=== PATIENT | female | born 1975 | race Hispanic/Latino ===

== ENCOUNTER 2017-08-21 18:32 | Inpatient (IN) | payer SELFPAY ==
[~2017-08-21] VITALS: Ht 149.9 cm; Wt 117.9 kg
[~2017-08-21 18:32] MED LIST: DEXAMETHASONE SOD PHOS INJ 4 MG/ML VIAL ONE; GLYCOPYRROLATE INJ 1MG/ 5 ML SYR ONE; LIDOCAINE HCL 2% LOCAL INJ 5 ML SDV VIAL INJ ONE; NEOSTIGMINE 5 MG/5ML SYR ONE; ONDANSETRON HCL INJ 2 MG/ML VIAL ONE; PROPOFOL IV EMULSION 10 MG/ML 20 ML VIAL ONE; ROCURONIUM BROMIDE 10 MG/ML 5ML VIAL ONE; SEVOFLURANE INHAL SOLN 250 ML PEN BTL ONE
[2017-08-21] MEDS ORDERED: KETOROLAC TROMETHAMINE 30 MG/ML VIAL IV STA (18:50)
[2017-08-21] MEDS ORDERED: PROMETHAZINE 25MG/ NS 50ML (IV) IV ONE (19:00)
[2017-08-21] MEDS ORDERED: SODIUM CHLORIDE 0.9% 1000ML 1,000 ML IV ONE (19:00)
[2017-08-21] MEDS ORDERED: NEXIUM20 MG PO (19:14)
[2017-08-21] MEDS ORDERED: SODIUM CHLORIDE 0.9% 500ML 500 ML ONE (20:45)
[2017-08-21] MEDS ORDERED: PIPERACILLIN/TAZOBAC 3.375 GM VIAL IV ONE (20:45)
[2017-08-21] MEDS ORDERED: DIAZEPAM INJ 5 MG/ML 2 ML IV PRN (21:15)
[2017-08-21] MEDS ORDERED: HYDROMORPHONE 1MG/1ML INJ IV PRN (23:00)
[2017-08-21] MEDS: SODIUM CHLORIDE 0.9% 1000ML 1,000 ML IV SCH (23:34)
[2017-08-21 23:57] VITALS: BP 138/71
[2017-08-22] VITALS (8 sets, daily range): BP systolic 94–138; BP diastolic 57–72
[2017-08-22] MEDS ORDERED: PIPER-TAZ 3.375 GM 100 ML IV SCH (03:00)
[2017-08-22] MEDS: PIPER-TAZ 3.375 GM 100 ML IV SCH ×4 (03:11→20:37)
[2017-08-22] MEDS: SODIUM CHLORIDE 0.9% 1000ML 1,000 ML IV SCH ×3 (05:10→20:37)
[2017-08-22 07:24] LABS: BASOPHILS # (AUTO) 0.1 (0.0-0.1); BASOPHILS % 0.6 % (0.0-1.0); EOSINOPHILS # (AUTO) 0.8 (0.0-0.4); EOSINOPHILS % 6.5 % (0.0-6.0); HEMATOCRIT 31.1 % (34.2-44.1); HEMOGLOBIN 9.4 g/dL (12.0-16.0); LYMPHOCYTES # (AUTO) 2.6 (1.0-3.2); LYMPHOCYTES % 20.3 % (18.0-39.1); MEAN CORPUSCULAR HEMOGLOBIN 23.8 pg (28-32); MEAN CORPUSCULAR HGB CONC 30.2 g/dL (31-35); MEAN CORPUSCULAR VOLUME 78.7 fL (81-99); MONOCYTES # (AUTO) 0.7 (0.2-0.8); MONOCYTES % 5.2 % (4.4-11.3); NEUTROPHILS # (AUTO) 8.6 (2.1-6.9); NEUTROPHILS % 66.9 % (38.7-80.0); PLATELET COUNT 349 x10e3/uL (140-360); RED BLOOD COUNT 3.95 x10e6/uL (3.6-5.1)
[2017-08-22] MEDS: HYDROMORPHONE 2MG/ML INJ IV PRN ×2 (08:53→17:49)
[2017-08-22] MEDS ORDERED: ONDANSETRON HCL INJ 2 MG/ML VIAL IV PRN (09:45)
--- NOTE | 2017-08-22 10:12 | History and Physical ---
CHIEF COMPLAINT: Abdominal pain. HISTORY OF PRESENT ILLNESS: The patient is a 41-year-old female with a 2-day history of pain in the right lower quadrant with nausea and vomiting. She had no fever, chills or diarrhea. The patient said the pain has not improved since admission. PAST MEDICAL HISTORY: Significant for hyperlipidemia. SURGICAL HISTORY: Positive for tubal ligation and . ALLERGIES: SHE IS ALLERGIC TO MORPHINE. SOCIAL HABITS: She has no drug use, smoking or alcohol abuse. REVIEW OF SYSTEMS: No chest pain, shortness of breath or cough. PHYSICAL EXAMINATION VITAL SIGNS: Stable. She is afebrile. GENERAL: The patient is awake, alert and in moderate discomfort. HEENT: Sclerae anicteric. NECK: Supple. LUNGS: Clear. HEART: Regular rate and rhythm. ABDOMEN: Soft with guarding, tenderness and rebound in the right lower quadrant. White cell count 13. CT scan showed acute appendicitis. ASSESSMENT: Acute appendicitis. PLAN: Laparoscopic appendectomy. Attendant risks discussed. Job#: [id number] [place]
[2017-08-22] MEDS ORDERED: ONDANSETRON HCL 4 MG ORAL DISINTEGRATING TAB ONE (10:18)
[2017-08-22] MEDS ORDERED: BUPIVACAINE 0.25%/EPI 30ML SDV INJ ONE (10:29)
[2017-08-22] MEDS ORDERED: LIDOCAINE HCL 1% LOCAL INJ 20 ML VIAL ONE (10:30)
[2017-08-22] MEDS: ONDANSETRON HCL 4 MG ORAL DISINTEGRATING TAB SL PRN (10:40)
--- NOTE | 2017-08-22 14:32 | Operative Report ---
DATE OF PROCEDURE: August 22, 2017 PREOPERATIVE DIAGNOSIS: Appendicitis. POSTOPERATIVE DIAGNOSIS: Appendicitis. OPERATIVE PROCEDURE: Laparoscopic appendectomy. RESAW OPERATOR: None. ANESTHESIA: General endotracheal, . INDICATIONS: The patient is a 41-year-old female with a 2-day history of pain in the right lower quadrant. CT scan showing appendicitis. Patient had consented for laparoscopic appendectomy with all attendant risks discussed. PROCEDURE FINDINGS: Acute appendicitis. DESCRIPTION OF PROCEDURE: Patient was brought to the OR intubated. Abdomen with prepped with alcohol and draped in a sterile fashion. An infraumbilical incision is made and a 12-mm port inserted and insufflation then began. Under direct vision, other port site placed in the right lower quadrant and right upper quadrant. Appendix noted to be retrocecal. It is mobilized by first dividing the white line of Toldt along the cecum and retracted the cecum medially. The appendix is then mobilized on the retrocecal position using the LigaSure to control the mesentery to the appendix. The neck of the appendix was then transected with the MELISSA stapler, and the appendix placed in an Endopouch and retrieved out of the peritoneal cavity. Operative field was irrigated. Hemostasis was achieved. All ports removed under direct vision. Fascial closure with interrupted 0 Vicryl. Skin closed with subcuticular stitch. Patient was extubated and transported to the recovery room. Estimated blood loss 5 mL. Job#: [id number] [place]
[2017-08-22] MEDS ORDERED: MIDAZOLAM HCL 2 MG/2 ML VIAL ONE (15:10)
[2017-08-22] MEDS ORDERED: FENTANYL CITRATE/PF 100MCG/2 ML INJ ONE (15:10)
[2017-08-23] VITALS (7 sets, daily range): BP systolic 84–122; BP diastolic 52–85
[2017-08-23] MEDS: PIPER-TAZ 3.375 GM 100 ML IV SCH ×4 (03:32→21:24)
[2017-08-23] MEDS: HYDROMORPHONE 2MG/ML INJ IV PRN ×5 (03:38→23:22)
[2017-08-23] MEDS: SODIUM CHLORIDE 0.9% 1000ML 1,000 ML IV SCH ×3 (05:10→20:14)
[2017-08-23] MEDS: PROMETHAZINE 12.5MG/ NACL 0.9% 12.5 MG/50 ML BAG IV PRN ×2 (08:47→20:13)
[2017-08-23] MEDS ORDERED: PANTOPRAZOLE 40 MG 10ML VIAL IV NR (12:43)
[2017-08-23] MEDS ORDERED: HYDROCODONE/APAP 7.5MG-325MG 1 EA TAB PO PRN (12:45)
[2017-08-23] MEDS: PANTOPRAZOLE 40 MG 10ML VIAL IV SCH (13:16)
[2017-08-24 00:04] VITALS: BP 124/72
[2017-08-24] MEDS: PIPER-TAZ 3.375 GM 100 ML IV SCH ×3 (03:20→15:45)
[2017-08-24] MEDS: PROMETHAZINE 12.5MG/ NACL 0.9% 12.5 MG/50 ML BAG IV PRN (03:20)
[2017-08-24 04:35] VITALS: BP 115/57
[2017-08-24] MEDS: SODIUM CHLORIDE 0.9% 1000ML 1,000 ML IV SCH ×2 (05:10→13:10)
[2017-08-24 08:00] VITALS: BP 128/65
[2017-08-24] MEDS: PANTOPRAZOLE 40 MG 10ML VIAL IV SCH (10:00)
[2017-08-24] MEDS: HYDROCODONE/APAP 5MG-325MG TAB PO PRN ×2 (10:30→21:00)
[2017-08-24] MEDS: ONDANSETRON HCL 4 MG ORAL DISINTEGRATING TAB SL PRN (10:30)
[2017-08-24 12:00] VITALS: BP 123/70
[2017-08-24 16:00] VITALS: BP 133/62
[2017-08-24 20:00] VITALS: BP 107/58
== END 2017-08-24 21:53 | disposition home or self-care (01) | DRG 343 ==
LOC: FSED 18:32 → MED/SURG 22:13
PROVIDERS: ADMIT Surgery; ATTEND Surgery
PROC: 0DTJ4ZZ Resection of Appendix, Percutaneous Endoscopic Approach (ICD-10-PCS; principal; 2017-08-22 10:45)
CPT/HCPCS: 36415; 74177; 80048; 80076; 81003; 81025; 85025; 88304; 96361; J1100; J1885; J2001; J2250; J2405; J2543; J2550; J3360; J7030; J7040

== ENCOUNTER 2022-02-08 20:31 | Emergency (ER) | payer MEDICARE, OTHER ==
[~2022-02-08] VITALS: Ht 149.9 cm; Wt 96.6 kg
[~2022-02-08 20:31] MED LIST changes: -DEXAMETHASONE SOD PHOS INJ 4 MG/ML VIAL ONE; -GLYCOPYRROLATE INJ 1MG/ 5 ML SYR ONE; -LIDOCAINE HCL 2% LOCAL INJ 5 ML SDV VIAL INJ ONE; -NEOSTIGMINE 5 MG/5ML SYR ONE; +NEXIUM20 MG PO; -ONDANSETRON HCL INJ 2 MG/ML VIAL ONE; -PROPOFOL IV EMULSION 10 MG/ML 20 ML VIAL ONE; -ROCURONIUM BROMIDE 10 MG/ML 5ML VIAL ONE; -SEVOFLURANE INHAL SOLN 250 ML PEN BTL ONE
[2022-02-08 23:25] VITALS: BP 140/86
== END 2022-02-08 23:25 | disposition home or self-care (01) ==
LOC: FSED 20:56
DX: R06.00 Dyspnea, unspecified (principal); J10.1 Influenza due to other identified influenza virus with other respiratory manifestations; R07.89 Other chest pain; I10 Essential (primary) hypertension; E78.5 Hyperlipidemia, unspecified; D64.9 Anemia, unspecified; K21.9 Gastro-esophageal reflux disease without esophagitis
CPT/HCPCS: 71046; 80053; 81003; 81025; 82553; 83880; 84484; 85025; 85379; 87400; 93005; 99283